=== PATIENT | female | born 1970 | race Two or more races ===

== ENCOUNTER 2019-02-20 07:13 | Outpatient (CLI) | payer OTHER | END 2019-02-20 09:05 | disposition home or self-care (01) | LOC: SONOGRAMA 07:13 | DX: E04.1 Nontoxic single thyroid nodule (principal) ==

== ENCOUNTER 2019-04-20 07:23 | Outpatient (CLI) | payer OTHER | END 2019-04-20 08:26 | disposition home or self-care (01) | LOC: SONOGRAMA 07:23 | DX: E04.1 Nontoxic single thyroid nodule (principal) ==